=== PATIENT | male | born 1965 | race Caucasian/White ===

== ENCOUNTER → 2022-08-29 | Outpatient (CLI) | payer OTHER ==
[2022-08-31 10:19] LABS: Stool Occult Bld Immuno 1 Positive (NEGATIVE)
== END | disposition home or self-care (01) ==
LOC: LAB SHORT 12:00
PROVIDERS: Nurse Practitioner Family
DX: Z12.11 Encounter for screening for malignant neoplasm of colon (principal); Z12.12 Encounter for screening for malignant neoplasm of rectum
CPT/HCPCS: G0328

== ENCOUNTER → 2023-08-15 | Outpatient (CLI) | payer OTHER | LOC: PLD 09:39 → LAB SHORT 09:39 | DX: D18.01 Hemangioma of skin and subcutaneous tissue (principal); D22.5 Melanocytic nevi of trunk | CPT/HCPCS: 88305 ==

== ENCOUNTER 2024-05-07 12:47 | Day surgery (SDC) | payer OTHER ==
[~2024-05-07] VITALS: Ht 188 cm; Wt 84.7 kg
[~2024-05-07 12:47] MED LIST: Aspir 8181 MG; Azor 5-20 MG T1 EACH; Norco 5-325 Ta1 EACH PO; SILODOSIN8 MG
[2024-05-07] MEDS ORDERED: propofoL 50 ML IV ONE ×2 (13:18→14:23)
[2024-05-07] MEDS ORDERED: Lactated Ringer's 1,000 ML IV ONE ×2 (13:20→13:40)
[2024-05-07] MEDS ORDERED: AZELASTINE137 MCG/01 (13:32)
[2024-05-07] MEDS ORDERED: SYMBICORT 160-4.6 GM (13:32)
[2024-05-07] MEDS ORDERED: VITAMIN D5000 UNIT (13:34)
[2024-05-07] MEDS ORDERED: MAGNESIUM OXID500 MG (13:35)
[2024-05-07] MEDS ORDERED: MULTI-VITAMIN1 EAC2 (13:35)
[2024-05-07] MEDS ORDERED: FOLI1 (13:35)
[2024-05-07] MEDS ORDERED: OMEP20ER (13:36)
[2024-05-07] MEDS ORDERED: OXYBUTYNIN (13:37)
[2024-05-07] MEDS ORDERED: Vitamin B-150 MG (13:38)
[2024-05-07] MEDS ORDERED: PROBIOTIC1 EA14 (13:38)
[2024-05-07 15:38] VITALS: BP 108/79
== END 2024-05-07 15:30 | disposition home or self-care (01) ==
LOC: ORSCSDS 12:47
PROVIDERS: Surgery
PROC: 3E0H8KZ Introduction of Other Diagnostic Substance into Lower GI, Via Natural or Artificial Opening Endoscopic (ICD-10-PCS; 2024-05-07)
PROC: 0DBL8ZX Excision of Transverse Colon, Via Natural or Artificial Opening Endoscopic, Diagnostic (ICD-10-PCS; principal; 2024-05-07 13:45)
DX: Z12.11 Encounter for screening for malignant neoplasm of colon (principal); R19.5 Other fecal abnormalities; D12.3 Benign neoplasm of transverse colon; K64.2 Third degree hemorrhoids; J45.909 Unspecified asthma, uncomplicated; Z85.820 Personal history of malignant melanoma of skin; Z79.899 Other long term (current) drug therapy; Z79.82 Long term (current) use of aspirin
CPT/HCPCS: 88305; J2704; J7120